=== PATIENT | male | born 1980 | race Asian ===

== ENCOUNTER 2017-11-12 09:19 | Outpatient (CLI) | payer OTHER ==
[~2017-11-12 09:19] MED LIST: Gadobenate Dimeglumine 529 MG/1 ML (20ML VIAL) ONE
--- NOTE | 2017-11-12 11:04 | MRI ---
MRI BRAIN WITH AND WITHOUT CONTRAST: Technique: Multiplanar, multisequential imaging of the brain obtained. Post contrast images obtained after administration of 12 cc of MultiHance IV. Internal auditory canal protocol. History: Asymmetric hearing loss. Left side hearing loss x one year. FINDINGS: Ventricles have normal size and position. No evidence of restricted diffusion. There is no evidence o f white matter abnormality. No mass or edema. The internal auditory canal sequences demonstrate normal appearing 7th and 8th cranial nerves. There is no abnormal enhancement. There is no evidence of acoustic schwannoma. No other cerebellar pontine angle mass lesion identified. The intracranial internal carotid arteries and proximal cerebral arteri es show flow voids. Basilar artery is patent. Paranasal sinuses are clear. Mastoids appear clear. IMPRESSION: 1. Unremarkable MRI of brain. 2. No evidence of acoustic schwannoma. POS: [facility]
== END 2017-11-12 09:20 | disposition home or self-care (01) ==
LOC: MRI 09:19
PROVIDERS: ATTEND Otolaryngology Plastic Surgery within the Head & Neck
DX: H91.8X9 Other specified hearing loss, unspecified ear (principal)
CPT/HCPCS: 70553; A9579

== ENCOUNTER 2018-02-19 00:06 | Emergency (ER) | payer OTHER ==
[2018-02-19] MEDS ORDERED: diphenhydrAMINE 25 MG CAP ONE (01:08)
[2018-02-19] MEDS ORDERED: Ibuprofen 200 MG TAB ONE (01:08)
[2018-02-19] MEDS ORDERED: Adacel (T-DAP) 0.5 ML VIAL ONE (01:35)
== END 2018-02-19 02:08 | disposition home or self-care (01) ==
LOC: ERS 00:06
DX: T63.2X1A Toxic effect of venom of scorpion, accidental (unintentional), initial encounter (principal); E78.00 Pure hypercholesterolemia, unspecified
CPT/HCPCS: 90471; 90715

== ENCOUNTER 2018-07-01 09:10 | Outpatient (CLI) | payer OTHER ==
--- NOTE | 2018-07-01 12:51 | ULT ---
TESTICULAR ULTRASOUND: INDICATIONS: Pain and infertility. COMPARISON: None. TECHNIQUE: Rodriguez-scale, color Doppler, and spectral Doppler images were obtained of the scrotum. FINDINGS: The right testicle measures 3.2 x 1.5 x 2.4 cm. The right epididymis is normal appearing. There is normal vascular flow to the right testicle. There is a small right-sided varicocele. No hydrocele i s demonstrated. The left testicle measures 3.1 x 1.4 x 2 cm. The left epididymis is normal appearing. There is norm al vascular flow to the left testicle. There is a mild sized left-sided varicocele. No hydrocele is demonstrated. IMPRESSION: 1. Mild bilateral varicoceles. 2. No intratesticular mass or torsion demonstrated. POS: [facility]
== END 2018-07-01 09:11 | disposition home or self-care (01) ==
LOC: BICULT 09:10
PROVIDERS: ATTEND Urology
DX: Z31.69 Encounter for other general counseling and advice on procreation (principal); I86.1 Scrotal varices
CPT/HCPCS: 76870; 93976